=== PATIENT | male | born 1965 | race Caucasian/White ===

== ENCOUNTER → 2016-07-08 | Outpatient (CLI) | payer MEDICAID ==
[2016-07-08 15:56] LABS: Basophils # (A) 0.1 k/uL (0-0.2); Basophils % (A) 2 %; CH 34.1; Eosinophils # (A) 0.3 k/uL (0-0.7); Eosinophils % (A) 6 %; HCT 39.2 % (39.0-53.0); HDW 2.19; HGB 13.6 gm/dL (13.0-17.5); Luc # (Auto) 0.12; Luc % (Auto) 3; Lymphocytes # (A) 1.7 k/uL (1.0-4.8); Lymphocytes % (A) 39 %; MCHC 34.8 g/dL (31.0-37.0); MCV 97.8 fL (80.0-100.0); Mean Platelet Volume 7.8; Monocytes # (A) 0.4 k/uL (0-1.0); Monocytes % (A) 9 %; Neutrophils # (A) 1.8 k/uL (1.3-7.7); Neutrophils % (A) 41 %; RBC 4.01 m/uL (4.30-5.90); RDW 12.6 % (11.5-15.5); WBC 4.4 k/uL (3.8-10.6); WBC (Perox) 4.44
[2016-07-08 16:15] LABS: ALT 37 U/L (21-72); AST 42 U/L (17-59); Alcohol <10 mg/dL; Alkaline Phosphatase 73 U/L (38-126); Anion Gap 11 mmol/L; Blood Urea Nitrogen 14 mg/dL (9-20); Calcium 9.7 mg/dL (8.4-10.2); Carbon Dioxide 28 mmol/L (22-30); Chloride 92 mmol/L (98-107); Glucose 94 mg/dL (74-99); Non-African American GFR(MDRD) >60 (>60 ml/min/1.73 sqM); Potassium 4.5 mmol/L (3.5-5.1); Sodium 131 mmol/L (137-145); Total Bilirubin 0.8 mg/dL (0.2-1.3); Total Protein 7.6 g/dL (6.3-8.2)
[2016-07-08 17:18] LABS: Vitamin B12 752 pg/mL (239-931)
== END | disposition home or self-care (01) ==
LOC: LABWHC1 15:19
PROVIDERS: ATTEND Psychiatry & Neurology Neurology
DX: E16.2 Hypoglycemia, unspecified (principal); R42 Dizziness and giddiness; D64.9 Anemia, unspecified; R94.6 Abnormal results of thyroid function studies; E05.90 Thyrotoxicosis, unspecified without thyrotoxic crisis or storm; D51.9 Vitamin B12 deficiency anemia, unspecified; Z51.81 Encounter for therapeutic drug level monitoring; Z79.01 Long term (current) use of anticoagulants; Z79.899 Other long term (current) drug therapy
CPT/HCPCS: 36415; 80053; 80164; 80320; 82140; 82607; 82746; 84443; 85025; 86780

== ENCOUNTER → 2016-07-22 | Outpatient (CLI) | payer MEDICAID ==
--- NOTE | 2016-07-23 09:07 | MR ---
MRI of the brain with and without contrast HISTORY: Headaches. TECHNIQUE: T1-weighted sagittal, T2, FLAIR, and diffusion axial, postcontrast T1 axial and coronal vi ews of the brain are submitted. CONTRAST: 16 mL MultiHance COMPARISON: 02/07/2013 FINDINGS: Again noted are postoperative changes of right temporal craniotomy. There is gliosis of the right tem poral lobe anteriorly with stable encephalomalacia noted. Nonenhancing medial temporal cystic changes again seen and appears stable and is likely part of the encephalomalacia postoperatively. No enhance ment is seen within the surgical site to suggest recurrent or residual disease. The ventricles are otherwise midline. There is mild periventricular white matter ischemic demyelinati on. A few scattered tiny nonspecific foci of increased signal are seen within the deep white matter o f both cerebral hemispheres. No evidence of acute ischemia. No enhancing lesions are identified. There is no evidence for midline shift. Prominent CSF space in the right anterior temporal fossa is stable measuring 2 x 1.5 cm suggestive of a small arachnoid cyst. IMPRESSION- 1. Postoperative changes of right temporal craniotomy with Stable t temporal gliosis and encephalomal acia. As noted there is no definite evidence for recurrent or residual disease.
== END | disposition home or self-care (01) ==
LOC: RADMRIMAIN 19:45
PROVIDERS: ATTEND Internal Medicine Pulmonary Disease
DX: G93.89 Other specified disorders of brain (principal); R41.3 Other amnesia; Z98.890 Other specified postprocedural states
CPT/HCPCS: 70553; A9577

== ENCOUNTER 2018-07-20 14:56 | Emergency (ER) | payer MEDICAID ==
[2018-07-20] MEDS ORDERED: methylPREDNISolone SOD SUCCI 125 MG/2 ML VIAL IV STA (15:13)
[2018-07-20] MEDS ORDERED: IPRATROPIUM-ALBUTEROL 3 ML NEB INHALATION STA (15:13)
[2018-07-20] MEDS ORDERED: HYDROmorphone 1 MG/ML 1 ML SYRINGE IVP STA ×2 (15:14→16:49)
[2018-07-20] MEDS ORDERED: ALBUTEROL NEBULIZED 2.5 MG/3 ML INHALATION STA (15:18)
[2018-07-20 15:30] LABS: Basophils # (A) 0.1 k/uL (0-0.2); Basophils % (A) 1 %; Eosinophils # (A) 0.1 k/uL (0-0.7); Eosinophils % (A) 1 %; HCT 41.3 % (39.0-53.0); HGB 14.5 gm/dL (13.0-17.5); Lymphocytes # (A) 3.3 k/uL (1.0-4.8); Lymphocytes % (A) 33 %; MCH 33.2 pg (25.0-35.0); MCHC 35.1 g/dL (31.0-37.0); MCV 94.5 fL (80.0-100.0); Mean Platelet Volume 7.1; Monocytes # (A) 0.6 k/uL (0-1.0); Monocytes % (A) 6 %; Neutrophils # (A) 5.9 k/uL (1.3-7.7); Neutrophils % (A) 58 %; Platelet Count 267 k/uL (150-450); RBC 4.38 m/uL (4.30-5.90); WBC 10.2 k/uL (3.8-10.6)
[2018-07-20 15:36] LABS: ALT 42 U/L (21-72); AST 35 U/L (17-59); Albumin 4.3 g/dL (3.5-5.0); Alkaline Phosphatase 71 U/L (38-126); Anion Gap 12 mmol/L; Blood Urea Nitrogen 11 mg/dL (9-20); Calcium 9.7 mg/dL (8.4-10.2); Carbon Dioxide 27 mmol/L (22-30); Chloride 100 mmol/L (98-107); Glucose 86 mg/dL (74-99); Potassium 3.6 mmol/L (3.5-5.1); Sodium 139 mmol/L (137-145); Total Bilirubin 0.3 mg/dL (0.2-1.3); Total Protein 7.3 g/dL (6.3-8.2)
[2018-07-20 15:45] LABS: INR 0.9 (<1.2)
[2018-07-20 15:53] LABS: Partial Thromboplastin Time 21.6 sec (22.0-30.0)
--- NOTE | 2018-07-20 16:04 | ED ---
General Adult HPI - General Stated complaint: CARLITOS/pneumonia Time Seen by Provider: 07/20/18 14:57 Source: patient, EMS, RN notes reviewed, old records reviewed Mode of arrival: EMS Limitations: no limitations - History of Present Illness Initial comments: 52-year-old male history of asthma and recent diagnosis of pneumonia was entertained for evaluation of cough and dyspnea. Patient has a symptoms for the past several days. He's had some nausea and vomiting associated with symptoms. He does report some mild chest pain worse with cough. He also complains of headache which is chronic in nature. Previous history of brain mass status post resection. Headache is chronic in nature and unchanged from baseline. Patient takes 2 mg Dilaudid by mouth at home for chronic pain. No fever or chills. No abdominal pain. - Related Data Home Medications Medication Instructions Recorded Confirmed ALPRAZolam [Xanax] 0.5 mg PO HS PRN 09/11/13 07/20/18 DULoxetine HCL [Cymbalta] 60 mg PO DAILY 09/11/13 07/20/18 OXcarbazepine [Trileptal] 600 mg PO TID 09/11/13 07/20/18 amLODIPine BESYLATE [Norvasc] 10 mg PO DAILY 09/11/13 07/20/18 Methadone [Dolophine] 10 mg PO 5XD PRN 11/12/13 07/20/18 Aspirin EC [Ecotrin Low Dose] 81 mg PO DAILY 07/20/18 07/20/18 Atorvastatin [Lipitor] 20 mg PO HS 07/20/18 07/20/18 Cefuroxime Axetil [Ceftin] 500 mg PO BID 07/20/18 07/20/18 Divalproex Sodium [Depakote] 2,000 mg PO HS 07/20/18 07/20/18 Ergocalciferol (Vitamin D2) 50,000 unit PO Q7D 07/20/18 07/20/18 [Vitamin D2] Glycopyrrolate/Formoterol Fum 2 puff INHALATION RT-BID 07/20/18 07/20/18 [Bevespi Aerosphere Inhaler] HYDROmorphone [Dilaudid] 2 mg PO DAILY PRN 07/20/18 07/20/18 Meloxicam [Mobic] 15 mg PO DAILY 07/20/18 07/20/18 Nicotine 21Mg/24Hr Patch [Habitrol 1 patch TRANSDERM DAILY 07/20/18 07/20/18 21Mg/24Hr Patch] methylPREDNISolone Dose Pack See Taper PO DIRECTED 07/20/18 07/20/18 [Medrol Dose Pack] Previous Rx's Medication Instructions Recorded Albuterol Inhaler [Ventolin Hfa 1 - 2 puff INHALATION Q4HR PRN #1 07/20/18 Inhaler] inhaler predniSONE 50 mg PO DAILY #5 tab 07/20/18 Allergies Allergy/AdvReac Type Severity Reaction Status Date / Time ketorolac tromethamine Allergy Severe Anaphylaxis Verified 07/20/18 16:05 [From Toradol] tramadol HCl [From Ultram] Allergy Severe Anaphylaxis Verified 07/20/18 16:05 venom-honey bee Allergy Severe Anaphylaxis Verified 07/20/18 16:05 [bee venom (honey bee)] ziprasidone HCl [From Geodon] Allergy Severe Dyspnea Verified 07/20/18 16:05 Review of Systems ROS Statement: Those systems with pertinent positive or pertinent negative responses have been documented in the HPI. ROS Other: All systems not noted in ROS Statement are negative. Past Medical History Past Medical History: Hypertension, Memory Impairment, Seizure Disorder Additional Past Medical History / Comment(s): SEVERAL YRS SINCE LAST SEIZURE. INTRACTABLE JORDAN. related to brain surgery, past hx. Kidney stones, short term memory issues related to past brain surgery, foreign body & infection left foot History of Any Multi-Drug Resistant Organisms: None Reported Past Surgical History: Back Surgery, Orthopedic Surgery Additional Past Surgical History / Comment(s): LT. ROTATOR CUFF REPAIR. LT. UPPER LEG AND ANKLES HAVE PINS. BRAIN SURGERY-BENIGN TUMOR 10/14/09. Past Anesthesia/Blood Transfusion Reactions: No Reported Reaction Past Psychological History: No Psychological Hx Reported Smoking Status: Current every day smoker - Past Family History Father Family Medical History: Cancer, Prostate Disorder General Exam Limitations: no limitations General appearance: alert, in no apparent distress Head exam: Present: atraumatic, normocephalic Eye exam: Present: normal appearance, PERRL, EOMI ENT exam: Present: mucous membranes dry Neck exam: Present: normal inspection. Absent: tenderness, meningismus Respiratory exam: Present: respiratory distress, wheezes, rhonchi Cardiovascular Exam: Present: regular rate, normal rhythm GI/Abdominal exam: Present: soft. Absent: distended, tenderness, guarding Extremities exam: Present: normal inspection, normal capillary refill. Absent: pedal edema Neurological exam: Present: alert, oriented X3, CN II-XII intact. Absent: motor sensory deficit Psychiatric exam: Present: normal affect, normal mood Skin exam: Present: warm, dry, intact. Absent: cyanosis, diaphoretic Course Vital Signs 07/20/18 07/20/18 07/20/18 15:26 15:36 15:40 Temperature 98.9 F Pulse Rate 86 80 Respiratory 20 20 20 Rate Blood Pressure 151/127 145/130 O2 Sat by Pulse 100 100 Oximetry 07/20/18 07/20/18 07/20/18 16:00 16:02 16:22 Temperature Pulse Rate 77 82 80 Respiratory 20 Rate Blood Pressure 138/106 O2 Sat by Pulse 99 Oximetry EKG Findings - EKG Comments: EKG Findings:: EKG: Normal sinus rhythm, LVH, rate of 81, VA interval 160, QRS duration 94, QTC [address] segment elevation or depression Medical Decision Making - Medical Decision Making 52-year-old male presents with cough and dyspnea. Recent diagnosis of pneumonia, on antibiotics, and albuterol twice daily. Remote history of tobacco use. No history of asthma. Initial exam reveals bilateral wheezing and rhonchi. Chest x-ray negative for focal pneumonia. Patient has normal CBC, normal CMP, negative troponin, negative BNP. Patient is reevaluated, improved air entry, no wheezing, no respiratory distress, normal oxygenation. Patient will continue on a box, continue albuterol at home. He will follow-up with his primary care physician for reevaluation. He is given increased dose of steroids. - Lab Data Result diagrams: 07/20/18 15:00 07/20/18 15:00 Lab Results 07/20/18 07/20/18 07/20/18 Range/Units 15:00 15:00 15:00 WBC 10.2 (3.8-10.6) k/uL RBC 4.38 (4.30-5.90) m/uL Hgb 14.5 (13.0-17.5) gm/dL Hct 41.3 (39.0-53.0) % MCV 94.5 (80.0-100.0) fL MCH 33.2 (25.0-35.0) pg MCHC 35.1 (31.0-37.0) g/dL RDW 13.0 (11.5-15.5) % Plt Count 267 (150-450) k/uL Neutrophils % 58 % Lymphocytes % 33 % Monocytes % 6 % Eosinophils % 1 % Basophils % 1 % Neutrophils # 5.9 (1.3-7.7) k/uL Lymphocytes # 3.3 (1.0-4.8) k/uL Monocytes # 0.6 (0-1.0) k/uL Eosinophils # 0.1 (0-0.7) k/uL Basophils # 0.1 (0-0.2) k/uL PT (9.0-12.0) sec INR (<1.2) APTT (22.0-30.0) sec Sodium 139 (137-145) mmol/L Potassium 3.6 (3.5-5.1) mmol/L Chloride 100 (98-107) mmol/L Carbon Dioxide 27 (22-30) mmol/L Anion Gap 12 mmol/L BUN 11 (9-20) mg/dL Creatinine 0.56 L (0.66-1.25) mg/dL Est GFR (CKD-EPI)AfAm >90 (>60 ml/min/1.73 sqM) Est GFR (CKD-EPI)NonAf >90 (>60 ml/min/1.73 sqM) Glucose 86 (74-99) mg/dL Calcium 9.7 (8.4-10.2) mg/dL Magnesium 2.0 (1.6-2.3) mg/dL Total Bilirubin 0.3 (0.2-1.3) mg/dL AST 35 (17-59) U/L ALT 42 (21-72) U/L Alkaline Phosphatase 71 (38-126) U/L Troponin I (0.000-0.034) ng/mL NT-Pro-B Natriuret Pep 172 pg/mL Total Protein 7.3 (6.3-8.2) g/dL Albumin 4.3 (3.5-5.0) g/dL Influenza Type A RNA (Not Detectd) Influenza Type B (PCR) (Not Detectd) 07/20/18 07/20/18 07/20/18 Range/Units 15:00 15:00 15:30 WBC (3.8-10.6) k/uL RBC (4.30-5.90) m/uL Hgb (13.0-17.5) gm/dL Hct (39.0-53.0) % MCV (80.0-100.0) fL MCH (25.0-35.0) pg MCHC (31.0-37.0) g/dL RDW (11.5-15.5) % Plt Count (150-450) k/uL Neutrophils % % Lymphocytes % % Monocytes % % Eosinophils % % Basophils % % Neutrophils # (1.3-7.7) k/uL Lymphocytes # (1.0-4.8) k/uL Monocytes # (0-1.0) k/uL Eosinophils # (0-0.7) k/uL Basophils # (0-0.2) k/uL PT 10.0 (9.0-12.0) sec INR 0.9 (<1.2) APTT 21.6 L (22.0-30.0) sec Sodium (137-145) mmol/L Potassium (3.5-5.1) mmol/L Chloride (98-107) mmol/L Carbon Dioxide (22-30) mmol/L Anion Gap mmol/L BUN (9-20) mg/dL Creatinine (0.66-1.25) mg/dL Est GFR (CKD-EPI)AfAm (>60 ml/min/1.73 sqM) Est GFR (CKD-EPI)NonAf (>60 ml/min/1.73 sqM) Glucose (74-99) mg/dL Calcium (8.4-10.2) mg/dL Magnesium (1.6-2.3) mg/dL Total Bilirubin (0.2-1.3) mg/dL AST (17-59) U/L ALT (21-72) U/L Alkaline Phosphatase (38-126) U/L Troponin I <0.012 (0.000-0.034) ng/mL NT-Pro-B Natriuret Pep pg/mL Total Protein (6.3-8.2) g/dL Albumin (3.5-5.0) g/dL Influenza Type A RNA Not Detected (Not Detectd) Influenza Type B (PCR) Not Detected (Not Detectd) Disposition Clinical Impression: Bronchitis Disposition: HOME SELF-CARE Condition: Good Prescriptions: predniSONE 50 mg PO DAILY #5 tab Albuterol Inhaler [Ventolin Hfa Inhaler] 1 - 2 puff INHALATION Q4HR PRN #1 inhaler PRN Reason: Shortness Of Breath Is patient prescribed a controlled substance at d/c from ED?: No Referrals: Etienne Faulkner MD [Primary Care Provider] - 1-2 days Time of Disposition: 16:50
--- NOTE | 2018-07-20 16:41 | XR ---
EXAMINATION TYPE: XR chest 2V DATE OF EXAM: 07/20/2018 COMPARISON: 09/20/2009 HISTORY: Cough TECHNIQUE: Frontal and lateral views of the chest are obtained. FINDINGS: Heart and mediastinum are normal. Lungs are clear. Diaphragm is normal. Bony thorax appear s normal. IMPRESSION: Normal chest. Improved inspiration compared to old exam..
[2018-07-20 17:08] VITALS: BP 139/96; PULSE 89; RESP 18; TEMP 98
== END 2018-07-20 17:07 | disposition home or self-care (01) ==
LOC: EC 14:56
DX: J40 Bronchitis, not specified as acute or chronic (principal); R11.2 Nausea with vomiting, unspecified; R51 Headache; I10 Essential (primary) hypertension; G40.909 Epilepsy, unspecified, not intractable, without status epilepticus; G89.29 Other chronic pain; F17.200 Nicotine dependence, unspecified, uncomplicated; Z88.5 Allergy status to narcotic agent; Z88.6 Allergy status to analgesic agent; Z88.8 Allergy status to other drugs, medicaments and biological substances; Z91.030 Bee allergy status; Z79.1 Long term (current) use of non-steroidal anti-inflammatories (NSAID); Z79.52 Long term (current) use of systemic steroids; Z79.82 Long term (current) use of aspirin; Z79.891 Long term (current) use of opiate analgesic; Z79.899 Other long term (current) drug therapy; Z87.01 Personal history of pneumonia (recurrent); Z86.011 Personal history of benign neoplasm of the brain; Z98.890 Other specified postprocedural states
CPT/HCPCS: 36415; 94640; 93005; 83880; 80053; 83735; 84484; 85025; 85610; 85730; 87502; 71046; 99285; 96374; 96375; 96376; J2930; J1170

== ENCOUNTER → 2023-09-23 | Outpatient (CLI) | payer OTHER ==
--- NOTE | 2023-09-27 21:05 | CT ---
EXAMINATION TYPE: CT Chest Abd Pelvis w con CT DLP: 2012 mGycm, Automated exposure control for dose reduction was used. DATE OF EXAM: 09/23/2023 1:44 PM COMPARISON: None. CLINICAL INDICATION:Male, 58 years old with history of R59.0 LYMPHADENOPATHY; PHH, lymphadenopathy Technique: CT Chest Abd Pelvis w con; Multiple axial images were obtained. Two-dimensional coronal an d sagittal reconstructions were obtained. Contrast used:100 mL of Isovue 300 with IV Contrast, Oral contrast used: without Oral Contrast Findings: CHEST: LUNGS/ PLEURA: The lung parenchyma appears unremarkable. AIRWAY: Patent and unremarkable. HEART: Size within normal limits. Moderately pronounced calcific coronary artery atherosclerosis. MEDIASTINUM: No gross evidence of adenopathy. VASCULATURE: No aortic aneurysm. MUSCULOSKELETAL: No acute osseous abnormalities. SOFT TISSUES/LYMPH NODES: Unremarkable. LOWER NECK: No significant findings. ABDOMEN: ABDOMEN LIVER: Unremarkable GALLBLADDER AND BILE DUCTS: Unremarkable. PANCREAS: Unremarkable. SPLEEN: Unremarkable. ADRENAL GLANDS: Unremarkable. KIDNEYS AND URETERS: No evidence of hydronephrosis or renal calculus. The ureters are unremarkable. PELVIS BLADDER: Unremarkable REPRODUCTIVE: Unremarkable. ABDOMEN & PELVIS STOMACH AND BOWEL: Stomach and duodenum are unremarkable. No evidence of bowel obstruction. PERITONEUM: No evidence of pneumoperitoneum or free fluid. VASCULATURE: No evidence of aortic aneurysm. MUSCULOSKELETAL: No acute osseous abnormalities. Multilevel vacuum disc phenomenon and endplate spond ylosis, especially lumbar spine. LYMPH NODES: No gross evidence for lymphadenopathy. SOFT TISSUE/ABDOMINAL WALL: Small bilateral fat-containing inguinal hernia IMPRESSION: No definite CT evidence for adenopathy or for acute process is appreciated.
== END | disposition home or self-care (01) ==
LOC: RADCTMAIN 13:06
PROVIDERS: ATTEND Internal Medicine
DX: R59.0 Localized enlarged lymph nodes (principal)
CPT/HCPCS: 71260; 74177; Q9967

== ENCOUNTER → 2023-10-25 | Outpatient (CLI) | payer OTHER ==
--- NOTE | 2023-10-25 14:12 | CT ---
EXAMINATION TYPE: CT soft tissue neck w con CT DLP: 869 mGycm, Automated exposure control for dose reduction was used. DATE OF EXAM: 10/25/2023 1:21 PM COMPARISON: MRI brain 07/22/2016 10/05/2012. CLINICAL INDICATION:Male, 58 years old with history of R59.0 LOCALIZED ENLARGED LYMPH NODES; PHH, ENL ARGED LYMPH NODES TECHNIQUE: Standard enhanced CT of the neck following intravenous administration of 100 cc of Isovue 300. Axial sections with coronal and sagittal reformats were obtained. FINDINGS: Brain: No acute fracture. Postsurgical changes of the right temporal bone with encephalomalacia withi n the right middle cranial fossa from prior injury. Orbits: Unremarkable Sinuses: Grossly unremarkable. Suprahyoid Neck: The oropharynx, oral cavity, parapharyngeal and retropharyngeal spaces are clear and symmetric. The nasopharynx is unremarkable. Infrahyoid Neck: The larynx, hypopharynx, and supraglottic area are clear and symmetric. Parotid Glands: Unremarkable. Submandibular Glands: Unremarkable. Musculoskeletal: No acute osseous abnormality. Osteoarthritic changes of the left shoulder. Lymph nodes: A few scattered bilateral neck lymph nodes. Examples include a lymph node inferior to t he left parotid gland measuring up to 9 mm short axis (series 3, image 40). Additional nonenlarged le rachle 2 lymph nodes measuring less than 1 cm short axis. Vascular structures: Atherosclerotic calcifications of the internal carotid arteries. There is modera te to high-grade stenosis of the origin of the left internal carotid artery secondary to calcified pl aque. Thoracic Inlet/airway: Airway is patent. The lung apices are clear. Soft tissues/Thyroid: Thyroid and remainder of the soft tissues are unremarkable. Other: none. IMPRESSION 1. Few nonspecific scattered lymph nodes within the neck with largest just inferior to the left paro tid gland measuring 9 mm short axis. 2. Moderate to high-grade stenosis at the origin of the left internal carotid artery secondary to ca lcified plaque.
== END | disposition home or self-care (01) ==
LOC: RADCTMAIN 11:47
PROVIDERS: ATTEND Internal Medicine
DX: I65.22 Occlusion and stenosis of left carotid artery (principal); R59.0 Localized enlarged lymph nodes; I10 Essential (primary) hypertension; K11.9 Disease of salivary gland, unspecified; G40.909 Epilepsy, unspecified, not intractable, without status epilepticus
CPT/HCPCS: 70491; Q9967

== ENCOUNTER → 2024-06-06 | Outpatient (CLI) | payer OTHER ==
--- NOTE | 2024-06-06 11:17 | CT ---
EXAMINATION TYPE: CT soft tissue neck w con DATE OF EXAM: 06/06/2024 HISTORY: LYMPH NODE ENLARGED COMPARISON: Prior neck CT October 25, 2023 CT DLP: 481.2 mGycm. Automated Exposure Control for Dose Reduction was Utilized. TECHNIQUE: CT scan of the neck is performed with IV Contrast, patient injected with 100 mL of Isovue 300, axial images are obtained, coronal and sagittal reformatted images are reviewed. FINDINGS: Airway: No gross abnormality seen. Parotid/submandibular glands: No gross abnormality seen. Carotid/Vascular Structures: Moderate to severe calcified plaque bilateral carotid bulb level with chappell ggestion of significant stenosis origin of the left internal carotid artery redemonstrated. Advise ca rotid ultrasound correlation to further evaluate. Osseous Structures: Loss of normal cervical curvature with mild to moderate disc space narrowing at C 5-C6 level. Other: There are a few prominent but scattered subcentimeter lymph nodes throughout the neck bilatera lly redemonstrated. No greater than 1 cm neck adenopathy. A reference lymph node inferior to left of product gland axial image 46 measures 11 x 6 mm not significantly changed from prior. The parapharyng eal fat spaces are maintained bilaterally. IMPRESSION: Stable bilateral subcentimeter neck lymph nodes. No new or enlarging greater than 1.0 cm on short axis suspicious adenopathy is seen.. [facility], , 06/06/2024 11:14 AM
== END | disposition home or self-care (01) ==
LOC: RADCTMAIN 10:24
PROVIDERS: ATTEND Internal Medicine
DX: R59.0 Localized enlarged lymph nodes (principal)
CPT/HCPCS: 70491; Q9967

== ENCOUNTER → 2024-11-14 | Outpatient (CLI) | payer OTHER ==
--- NOTE | 2024-11-14 22:09 | MR ---
EXAMINATION TYPE: MR pelvis wo con DATE OF EXAM: 11/14/2024 COMPARISON: CT chest abdomen and pelvis 09/23/2023 CLINICAL INDICATION:Male, 59 years old with history of R19.00 INTRA-ABD AND PELVIC SWELLING, MASS AND LUMP; [facility], TECHNIQUE: Triplane multisequence imaging was performed of the pelvis without intravenous contrast. Evaluation is limited due to lack of intravenous contrast. FINDINGS: Reproductive: Prostate: Unremarkable. Seminal vesicle's: Unremarkable. Testes: Unremarkable. Bladder: Unremarkable. Bowel: Unremarkable as visualized. Peritoneum: No free fluid. No evidence of adenopathy. Vasculature: Unremarkable. Abdominal wall/soft tissues: Small right direct inguinal hernia with bilateral patulous fat filled in guinal rings. There is a ovoid well-circumscribed mixed signal lesion within the right gluteal subcut aneous tissues measuring 1.3 x 1.0 cm. This is approximately 0.8 cm below the skin surface. This aquilino esponds to palpable marker and was present on prior CT. Musculoskeletal: Multilevel degenerative disc disease of the visualized lower lumbar spine. IMPRESSION: 1. Right gluteal subcutaneous tissue 1.3 x 1.0 cm lesion corresponds to palpable marker. Consistent w ith a calcified granuloma as seen on prior CT. 2. Small right direct inguinal hernia with bilateral patulous fat filled inguinal rings. [facility], , 11/14/2024 10:07 PM
== END | disposition home or self-care (01) ==
LOC: RADMRIMAIN 17:37
PROVIDERS: ATTEND Internal Medicine
DX: K40.90 Unilateral inguinal hernia, without obstruction or gangrene, not specified as recurrent (principal)
CPT/HCPCS: 72195